=== PATIENT | female | born 1965 | race Hispanic/Latino ===

== ENCOUNTER 2018-12-09 00:01 | Emergency (ER) | payer BC ==
[~2018-12-09] VITALS: Ht 151.1 cm; Wt 52.2 kg
--- NOTE | 2018-12-09 00:40 | NUR ---
[place] [facility] ON UNIT
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
--- NOTE | 2018-12-09 01:57 | NUR ---
OFFICER Brijesh HOBBS, CASE #[id number]
== END 2018-12-09 02:18 | disposition home or self-care (01) ==
LOC: ER 00:01
DX: S16.1XXA Strain of muscle, fascia and tendon at neck level, initial encounter (principal); S50.11XA Contusion of right forearm, initial encounter; S50.12XA Contusion of left forearm, initial encounter; S00.03XA Contusion of scalp, initial encounter; S70.01XA Contusion of right hip, initial encounter; I10 Essential (primary) hypertension; E03.9 Hypothyroidism, unspecified; Z21 Asymptomatic human immunodeficiency virus [HIV] infection status; Y04.8XXA Assault by other bodily force, initial encounter; Y92.003 Bedroom of unspecified non-institutional (private) residence as the place of occurrence of the external cause
CPT/HCPCS: 70450; 72125; 99283

== ENCOUNTER → 2019-08-08 | Day surgery (SDC) | payer BC, OTHER ==
[~2019-08-08] MED LIST: ALIVE WOMEN'S1 EAC2 PO; BUPIVACAINE HCL 0.5% INJ 30 ML VIAL INJ ONE; CLINDAMYCIN 600MG / 50ML 50 ML IV ONE; DEXAMETHASONE SOD PHOS INJ 4 MG/ML VIAL ONE; FENTANYL CITRATE/PF 100MCG/2 ML INJ ONE; FLUOXETINE HCL20 MG PO; LIDOCAINE HCL 2% LOCAL INJ 5 ML SDV VIAL INJ ONE; LISINOPRIL10 MG PO; MIDAZOLAM HCL 2 MG/2 ML VIAL ONE; MUPIROCIN 2% OINT 22 GM TUBE ONE; ONDANSETRON HCL INJ 2MG/ML 2ML 2 MG/ML VIAL ONE; PROPOFOL IV EMULSION 10 MG/ML 20 ML VIAL ONE; SEVOFLURANE INHAL SOLN 250 ML PEN BTL ONE
--- NOTE | 2019-08-08 07:15 | NUR ---
SPIRITUAL CARE - Pre-Surgery Assessment: Pt in bed. Pt's at bedside. Pt reported supportive attention from family and friends. Intervention: Provided pastoral presence, hospitality,and sympathetic listening. Acquainted pt with availability of radio adjuster while hospitalized. Outcome: Pt expressed appreciation for visit. No need for follow up indicated at this time. RYAN Gonzalezlain Spiritual Care Department O: [phone]
[2019-08-08 09:30] VITALS: BP 105/59
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
== END | disposition home or self-care (01) ==
LOC: OR 05:19
PROVIDERS: ATTEND Plastic Surgery
DX: M20.011 Mallet finger of right finger(s) (principal); I10 Essential (primary) hypertension; F17.210 Nicotine dependence, cigarettes, uncomplicated; Z88.0 Allergy status to penicillin; Z01.810 Encounter for preprocedural cardiovascular examination; Z01.812 Encounter for preprocedural laboratory examination; Z11.59 Encounter for screening for other viral diseases
CPT/HCPCS: 26432; 87635; 93005; J1100; J2001; J2250; J2405; J2704; J3010

== ENCOUNTER → 2020-05-28 | Day surgery (SDC) | payer BC ==
[~2020-05-28] MED LIST changes: +KETOROLAC TROMETHAMINE 30 MG/ML VIAL ONE; +TYLENOL # 31 EA PO; +WOMEN'S DAILY1 EAC4 PO
[2020-05-28 08:27] VITALS: BP 110/70
== END | disposition home or self-care (01) ==
LOC: OR 05:25 → EDSTATUS 07:00
PROVIDERS: ATTEND Plastic Surgery
DX: M65.311 Trigger thumb, right thumb (principal); M65.321 Trigger finger, right index finger; I10 Essential (primary) hypertension; F17.210 Nicotine dependence, cigarettes, uncomplicated; Z88.0 Allergy status to penicillin; Z01.810 Encounter for preprocedural cardiovascular examination; Z01.812 Encounter for preprocedural laboratory examination; Z20.822 Contact with and (suspected) exposure to COVID-19
CPT/HCPCS: 26055 ×2; 93005; J1100; J1885; J2001; J2250; J2405; J2704; J3010; U0002

== ENCOUNTER 2021-11-28 18:52 | Emergency (ER) | payer BC ==
[~2021-11-28] VITALS: Ht 151.1 cm; Wt 56.7 kg
[~2021-11-28 18:52] MED LIST changes: -BUPIVACAINE HCL 0.5% INJ 30 ML VIAL INJ ONE; -CLINDAMYCIN 600MG / 50ML 50 ML IV ONE; -DEXAMETHASONE SOD PHOS INJ 4 MG/ML VIAL ONE; -FENTANYL CITRATE/PF 100MCG/2 ML INJ ONE; -KETOROLAC TROMETHAMINE 30 MG/ML VIAL ONE; -LIDOCAINE HCL 2% LOCAL INJ 5 ML SDV VIAL INJ ONE; -MIDAZOLAM HCL 2 MG/2 ML VIAL ONE; -MUPIROCIN 2% OINT 22 GM TUBE ONE; -ONDANSETRON HCL INJ 2MG/ML 2ML 2 MG/ML VIAL ONE; -PROPOFOL IV EMULSION 10 MG/ML 20 ML VIAL ONE; -SEVOFLURANE INHAL SOLN 250 ML PEN BTL ONE
[2021-11-28] MEDS ORDERED: TETANUS/DIPHTHERIA TOX ADULT 0.5 ML SYR IM ONE (19:15)
== END 2021-11-28 19:34 | disposition home or self-care (01) ==
LOC: ER 19:06
DX: S61.011A Laceration without foreign body of right thumb without damage to nail, initial encounter (principal); W26.0XXA Contact with knife, initial encounter; Y92.090 Kitchen in other non-institutional residence as the place of occurrence of the external cause; I10 Essential (primary) hypertension; F41.9 Anxiety disorder, unspecified; F32.A Depression, unspecified; F17.210 Nicotine dependence, cigarettes, uncomplicated
CPT/HCPCS: 90471; 90714; 99282

== ENCOUNTER → 2022-09-22 | Day surgery (SDC) | payer BC ==
[~2022-09-22] MED LIST changes: +ACETAMINOPHEN-1 EAC4 PO; +BUPIVACAINE HCL 0.5% INJ 30 ML VIAL INJ ONE; +CLINDAMYCIN 600MG / 50ML 50 ML IV ONE; +DEXAMETHASONE SOD PHOS INJ 4 MG/ML SDV ONE; +EPHEDRINE SULFATE INJ 50 MG/ML VIAL ONE; +FENTANYL CITRATE/PF 100MCG/2 ML INJ ONE; +LACTATED RINGER'S 1,000 ML ONE; +LIDOCAINE HCL 2% LOCAL INJ 5 ML SDV VIAL INJ ONE; +MIDAZOLAM HCL 2 MG/2 ML VIAL ONE; +MUPIROCIN 2% OINT 22 GM TUBE ONE; +ONDANSETRON HCL INJ 2MG/ML 2ML 2 MG/ML VIAL ONE; +POVIDONE IODINE 0.05% 0.05 % ML PO ONE; +PROPOFOL IV EMULSION 10 MG/ML 20 ML VIAL ONE; +SEVOFLURANE INHAL SOLN 250 ML PEN BTL ONE
[2022-09-22 08:30] VITALS: BP 135/76; PULSE 77; RESP 17; O2SAT 96
== END | disposition home or self-care (01) ==
LOC: OR 05:57
PROVIDERS: ATTEND Plastic Surgery
DX: M65.342 Trigger finger, left ring finger (principal); I10 Essential (primary) hypertension; I45.10 Unspecified right bundle-branch block; Z01.810 Encounter for preprocedural cardiovascular examination; Z01.818 Encounter for other preprocedural examination; Z79.899 Other long term (current) drug therapy
CPT/HCPCS: 26055; 71046; 93005; J1100; J2001; J2250; J2405; J2704; J3010; J7121